=== PATIENT | male | born 1980 | race Caucasian/White ===

== ENCOUNTER 2016-03-13 16:24 | Emergency (ER) | payer OTHER ==
[~2016-03-13] VITALS: Ht 185.4 cm; Wt 87.6 kg
[~2016-03-13 16:24] MED LIST: BENTYL20 MG PO; FLEXERIL10 MG PO; KEFLEX500 MG PO; MOTRIN800 MG PO; NO MEDS; NOHOMEMEDS; SUDAFED 12-HOU120 MG PO
[2016-03-13] MEDS ORDERED: CEPHALEXIN500 MG PO (16:59)
[2016-03-13 17:22] VITALS: BP 140/82
== END 2016-03-13 17:22 | disposition home or self-care (01) ==
LOC: EME 16:24
DX: A54.89 Other gonococcal infections (principal)
CPT/HCPCS: 99281; 99284; J0696

== ENCOUNTER 2016-06-29 16:02 | Emergency (ER) | payer OTHER ==
[~2016-06-29] VITALS: Ht 185.4 cm; Wt 89.4 kg
[~2016-06-29 16:02] MED LIST changes: +CEPHALEXIN500 MG PO
[2016-06-29] MEDS ORDERED: FLAGYL500 MG PO (18:39)
[2016-06-29 18:54] LABS: ADD MIUA? NO; BILIRUBIN NEGATIVE; BLOOD NEGATIVE; COLOR YELLOW ((YELLOW)); GLUCOSE (STRIP) NEGATIVE; KETONES NEGATIVE; LEUKOCYTES NEGATIVE; NITRITE NEGATIVE; PROTEIN (STRIP) NEGATIVE; UCUL ADDED? NO; UROBILINOGEN 0.2 MG/DL (0.2-1.0)
[2016-06-29 19:59] VITALS: BP 130/65
[2016-07-01 12:32] LABS: CHLAMYDIA TRACHOMATIS NEGATIVE; NEISSERIA GONORRHOEAE NEGATIVE
== END 2016-06-29 20:00 | disposition home or self-care (01) ==
LOC: EME 16:02
PROVIDERS: Emergency Medicine
DX: N28.89 Other specified disorders of kidney and ureter (principal); Z11.3 Encounter for screening for infections with a predominantly sexual mode of transmission; F17.200 Nicotine dependence, unspecified, uncomplicated
CPT/HCPCS: 81003; 87491; 87591; 99281; 99284; J0696

== ENCOUNTER 2016-12-05 14:32 | Emergency (ER) | payer OTHER ==
[~2016-12-05] VITALS: Ht 182.9 cm; Wt 79.8 kg
[~2016-12-05 14:32] MED LIST changes: +FLAGYL500 MG PO
[2016-12-05 14:35] VITALS: BP 133/76
[2016-12-05] MEDS ORDERED: NAPROSYN500 MG PO (15:07)
[2016-12-05] MEDS ORDERED: KEFLEX500 MG PO (15:07)
== END 2016-12-05 15:27 | disposition home or self-care (01) ==
LOC: EME 14:32
DX: S61.210A Laceration without foreign body of right index finger without damage to nail, initial encounter (principal); S60.00XA Contusion of unspecified finger without damage to nail, initial encounter; W23.0XXA Caught, crushed, jammed, or pinched between moving objects, initial encounter
CPT/HCPCS: 73140; 99281; 99284

== ENCOUNTER 2017-07-25 13:52 | Emergency (ER) | payer OTHER ==
[~2017-07-25] VITALS: Ht 185.4 cm; Wt 80.0 kg
[~2017-07-25 13:52] MED LIST changes: +NAPROSYN500 MG PO
[2017-07-25 14:12] LABS: SOURCE URINE
[2017-07-25] MEDS ORDERED: DOXYCYCLINE HY100 MG PO (15:29)
[2017-07-25 16:16] VITALS: BP 131/71
[2017-07-26 13:36] LABS: CHLAMYDIA TRACHOMATIS NEGATIVE; NEISSERIA GONORRHOEAE NEGATIVE
== END 2017-07-25 16:17 | disposition home or self-care (01) ==
LOC: EME 13:52
DX: R36.9 Urethral discharge, unspecified (principal); Z20.2 Contact with and (suspected) exposure to infections with a predominantly sexual mode of transmission; F17.200 Nicotine dependence, unspecified, uncomplicated
CPT/HCPCS: 87491; 87591; 99281; 99283; J0696

== ENCOUNTER 2017-08-09 11:48 | Emergency (ER) | payer OTHER ==
[~2017-08-09] VITALS: Ht 185.4 cm; Wt 79.7 kg
[~2017-08-09 11:48] MED LIST changes: +DOXYCYCLINE HY100 MG PO
[2017-08-09 13:44] LABS: SOURCE URINE
[2017-08-09 13:51] LABS: APPEARANCE CLEAR ((CLEAR)); BILIRUBIN NEGATIVE; BLOOD NEGATIVE; COLOR YELLOW ((YELLOW)); GLUCOSE (STRIP) NEGATIVE; KETONES NEGATIVE; LEUKOCYTES NEGATIVE; NITRITE NEGATIVE; PROTEIN (STRIP) NEGATIVE; SPECIFIC GRAVITY 1.013 (1.000-1.030); UROBILINOGEN 0.2 MG/DL (0.2-1.0)
[2017-08-09] MEDS ORDERED: ULTRAM50 MG PO (14:45)
[2017-08-09] MEDS ORDERED: KEFLEX500 MG PO (14:49)
[2017-08-09] MEDS ORDERED: BACTRIM,SEPT1 TABLET PO (14:49)
[2017-08-09 15:02] VITALS: BP 115/59
[2017-08-11 15:21] LABS: CHLAMYDIA TRACHOMATIS NEGATIVE; NEISSERIA GONORRHOEAE NEGATIVE
== END 2017-08-09 15:04 | disposition home or self-care (01) ==
LOC: EME 11:48
PROVIDERS: Physician Assistant
PROC: 0H92XZZ Drainage of Right Ear Skin, External Approach (ICD-10-PCS; principal; 2017-08-09)
DX: N50.812 Left testicular pain (principal); H60.01 Abscess of right external ear; N43.3 Hydrocele, unspecified
CPT/HCPCS: 76870; 81003; 87491; 87591; 99281; 99284; J0696